=== PATIENT | male | born 1955 | race Caucasian/White ===

== ENCOUNTER 2020-02-19 17:16 | Outpatient (REF) | payer MEDICARE, OTHER, SELFPAY | END 2020-02-19 17:17 | disposition home or self-care (01) | LOC: HO.LAB 17:16 | PROVIDERS: PCP Family Medicine; Visit Provider Internal Medicine | DX: Z20.828 Contact with and (suspected) exposure to other viral communicable diseases (principal) | CPT/HCPCS: C9803; U0003 ==

== ENCOUNTER 2023-06-07 06:32 | Day surgery (SDC) | payer MEDICARE, OTHER, SELFPAY ==
[2023-06-03 11:36] VITALS: BMI 27.6
--- NOTE | 2023-06-03 14:23 | HO.ANESPROP2 ---
Documented by User: Lima Forman NP 06/03/23 14:23 HPI - Anesthesia Eval Consult details Narrative: 67yo M for Upper Endoscopy and Colonoscopy [facility] Active Problems Active Problems: All Active Problems (Updated 06/03/23 @ 11:35 by Alessia Gipson, RN) Immunization counseling (Acute) Skin excoriation (Acute) Past Medical History Medical History Elevated cholesterol HTN (hypertension) Surgical History Surgical History Hx of right cataract extraction Hx of knee surgery History of esophagogastroduodenoscopy (EGD) H/O colonoscopy Social History Social History Patient Tobacco Use Status: Former Tobacco user Quit Date: age 18's Tobacco use type: Cigarette Use of substances other than those prescribed or required for medical reasons: No Are you DNR?: No Advance Directives: No Advance Directives Information Provided: Yes Meds Allergies Allergy/AdvReac Type Severity Reaction Status Date / Time Gadolinium-Containing Allergy Mild PATIENT Verified 06/07/23 07:00 Contrast Medi DEVELOPS [Gadolinium-Containing HIVES Agents] Home Medications Medication Instructions Recorded Confirmed Last Taken Type atorvastatin 20 mg tablet 20 mg PO DAILY 11/08/20 06/07/23 Unknown History losartan 50 mg tablet 100 mg PO DAILY 11/08/20 06/07/23 Unknown History sildenafil 100 mg tablet 50 mg PO DAILY PRN Erectile 11/08/20 06/07/23 Unknown History Dysfunction Exam Height,Weight and Vital Signs: Height 6 ft 0.25 in Weight 92.986 kg Assessment and Plan Assessment Anesthesia Assessment: Chart Reviewed Documented by User: Flako Maria MD 06/07/23 07:02 [facility] Past Medical History Medical History Elevated cholesterol HTN (hypertension) Family History Family history of problems with anesthesia: No Surgical History Surgical History Hx of right cataract extraction Hx of knee surgery History of esophagogastroduodenoscopy (EGD) H/O colonoscopy History of Problems with Anesthesia: No Social History Social History Patient Tobacco Use Status: Former Tobacco user Quit Date: age 18's Tobacco use type: Cigarette Use of substances other than those prescribed or required for medical reasons: No Are you DNR?: No Advance Directives: No Advance Directives Information Provided: Yes Meds Allergies Allergy/AdvReac Type Severity Reaction Status Date / Time Gadolinium-Containing Allergy Mild PATIENT Verified 06/07/23 07:00 Contrast Medi DEVELOPS [Gadolinium-Containing HIVES Agents] Home Medications Medication Instructions Recorded Confirmed Last Taken Type atorvastatin 20 mg tablet 20 mg PO DAILY 11/08/20 06/07/23 Unknown History losartan 50 mg tablet 100 mg PO DAILY 11/08/20 06/07/23 Unknown History sildenafil 100 mg tablet 50 mg PO DAILY PRN Erectile 11/08/20 06/07/23 Unknown History Dysfunction Exam Airway Mallampati Class: II TM Dist: >3cm Neck ROM: Full Loose/Missing/Broken Teeth: No Heart: rrr Lungs: cta b/l Assessment and Plan Final Anesthetic Review Family History of Problems with Anesthesia: No History of Problems with Anesthesia: No NPO: Yes ASA Class: II Final Preanesthetic Review: No Changes in Pt Med Stat, Meds/Allgs Chart Reviewed, Consent Obtained/Reviewed and Anes Risks/Benef Reviewed Patient Risk: Intermediate Procedure Risk: Intermediate Anesthetic Plan Anesthetic Plan: MAC: Disposition: Standard PACU
[2023-06-07 06:40] VITALS: BMI 27.2
[2023-06-07 06:45] VITALS: BP 117/74; PULSE 70; RESP 16; TEMP 36.3; O2SAT 98
[2023-06-07] MEDS: Lactated Ringers 1,000 ML 100 ML IVCONT (07:09)
[2023-06-07 08:34] VITALS: BP 107/72; PULSE 67; RESP 17; TEMP 36.1; O2SAT 96
--- NOTE | 2023-06-07 08:37 | P.BOP_ITS ---
Brief Operative Note Date of Service: 06/07/23 Pre-op diagnosis: GERD, Guerra's, Screening Post-op diagnosis: other (Hiatal hernia, Colon polyps) Procedure: EGD with biopsies, Colonoscopy to the cecum and TI with bx/removal of polyps Surgeon: Daniel Alas MD Anesthesia: MAC Was an Business Development Executive used for this Procedure?: No Estimated blood loss (mL): 2.0 Pathology: other (A. EG Junction at 38cm B. Gastric polyp C. Cecal polyps D. Ascending colon polyp E. Transverse colon polyp F. Polyp at 50cm) Condition: stable Disposition: PACU
[2023-06-07 08:51] VITALS: BP 112/75; PULSE 64; RESP 17; TEMP 36.1; O2SAT 97
--- NOTE | 2023-06-07 09:43 | OP_ITS ---
DATE OF SERVICE: 06/07/2023 SURGEON: Daniel Alas MD INDICATIONS: The patient presents for evaluation of gastroesophageal reflux, history of Guerra esophagus, personal history of colon polyps, and colorectal cancer screening. PREOPERATIVE DIAGNOSIS: POSTOPERATIVE DIAGNOSIS: PROCEDURE PERFORMED: Esophagogastroduodenoscopy with biopsies, and colonoscopy to cecum and terminal ileum with biopsy and removal of polyps. ESTIMATED BLOOD LOSS: COMPLICATIONS: ANESTHESIA: Monitored anesthesia care. ASSISTANTS: SPECIMENS: POSTOPERATIVE DIAGNOSES: The patient presents for evaluation of gastroesophageal reflux, history of Guerra esophagus, personal history of colon polyps, and colorectal cancer screening, small hiatal hernia, gastric polyp, small colon polyps, diverticulosis, and internal hemorrhoids. DESCRIPTION OF PROCEDURE: The patient was placed in the left lateral decubitus position. The Olympus video gastroscope was passed in the posterior oropharynx and upper esophagus under direct vision. The scope was passed slowly into the distal esophagus. The gastroesophageal junction appeared at 38 cm. There was some minimal irregularity but no evidence of any esophagitis nor any lesions. The scope entered the stomach. There was a small hiatal hernia. The scope was advanced to the pylorus, and the duodenum was cannulated to the descending portion. The duodenum including the bulb appeared normal without mass or ulceration. The scope was withdrawn back to the stomach. The gastric antrum appeared normal with good peristalsis. In the body of the stomach along the greater curvature, was an approximately 5 mm polyp, which was biopsied twice. The scope was retroflexed visualizing the proximal stomach carefully, which appeared normal, without any sign of mass or ulceration. The scope was straightened and withdrawn back in the esophagus. Biopsies were obtained at the EG junction at 38 cm. Proximal to that, the esophageal mucosa appeared normal. The scope was withdrawn from the patient. He was turned around for the colonoscopy. The digital rectal exam revealed no abnormalities. The Olympus video pediatric colonoscope was entered into the rectum and advanced easily to the cecum. Once in the cecum, I did identify normal-appearing cecal pouch other than 3, less than 5 mm polyps, which were all biopsied and completely removed with a cold biopsy forceps. The remainder of the cecum including the appendiceal orifice appeared normal. The terminal ileum was cannulated and appeared normal. The scope was withdrawn back in the colon. The ileocecal valve appeared normal. The scope was slowly withdrawn assessing all mucosal surfaces carefully. Preparation was excellent. In the ascending colon, transverse colon, and at 50 cm were flat, less than 5 mm polyps, which were all biopsied and completely removed with a cold biopsy forceps. I did not visualize any other polyps, colitis, or angiodysplasia. There was a mild amount of sigmoid diverticulosis. In the rectum, scope was retroflexed visualizing internal hemorrhoids, but no other pathology. The rectal mucosa appeared normal. The scope was straightened and withdrawn from the patient. He tolerated both procedures well and was returned to the recovery area in stable condition. IMPRESSION: 1. Small hiatal hernia, gastroesophageal reflux, history of Guerra esophagus. 2. Gastric polyp. 3. Colon polyps. 4. Diverticulosis. 5. Internal hemorrhoids. PLAN: The results of the biopsies will be checked. I would recommend a repeat upper endoscopy and colonoscopy in 5 years for further surveillance. He will otherwise see me on a p.r.n. basis. MD LLUVIA Haynes/JAZZY / [id number]
== END 2023-06-07 09:38 | disposition home or self-care (01) ==
PROVIDERS: PCP Family Medicine; Visit Provider Internal Medicine
PROC: (CPT 45380; principal; 2023-06-07 07:30)
DX: Z12.11 Encounter for screening for malignant neoplasm of colon (principal); Z86.010 Personal history of colon polyps; D12.0 Benign neoplasm of cecum; D12.5 Benign neoplasm of sigmoid colon; K63.5 Polyp of colon; K57.30 Diverticulosis of large intestine without perforation or abscess without bleeding; K64.8 Other hemorrhoids; K21.9 Gastro-esophageal reflux disease without esophagitis; K22.70 Barrett's esophagus without dysplasia; K31.7 Polyp of stomach and duodenum; K44.9 Diaphragmatic hernia without obstruction or gangrene; I10 Essential (primary) hypertension; E78.5 Hyperlipidemia, unspecified; Z79.899 Other long term (current) drug therapy; Z87.891 Personal history of nicotine dependence
CPT/HCPCS: 45380; 43239; 88305; 88313; 88342; J2704